=== PATIENT | female | born 1955 | race Caucasian/White ===

== ENCOUNTER 2016-12-30 06:19 | Emergency (ER) | payer BC ==
[2016-12-30] MEDS ORDERED: Sodium Chloride 0.9% 1,000 ML IV ONE (07:07)
[2016-12-30] MEDS ORDERED: Iopamidol 755 Mg/ML 75 ML Bottle IV ONE (08:18)
[2016-12-30 10:37] VITALS: BP 125/90
--- NOTE | 2016-12-31 01:37 | ER ---
DATE SEEN: 12/30/2016 TIME SEEN: The patient's arrival at 0630 hours. HISTORY OF PRESENT ILLNESS: This pleasant 61-year-old , nonsmoking woman, who drinks 4 beers a week presented with new onset of 0300 hours sharp, R>L midepigastric abdominal discomfort, 6/10 in intensity. Previous surgery cholecystectomy noted. No previous history of diabetes, heart disease (daughter has diabetes), no coronary artery disease, asthma, no nausea, vomiting, diarrhea, constipation, blood in her stool, hematochezia, melena, or reflux. On 10/18/2015, Dr. Pina performed EGD and demonstrated mild esophagitisa hiatus hernia with 6 cm of the stomach above the gastroesophageal junction - and also . Pathology specimens and biopsies were negative patient was diagnosed with GERD. She has had long history of GERD prior to this. The patient's last menstrual period was when she was 44. She is a 4, para 4-0-0-4. No intercurrent abdominal pain or bleed. SOCIAL HISTORY: The patient is and is a nonsmoker. Drinks pop. She took a suppository at 0300 hours. PAST MEDICAL HISTORY: Noncontributory other than previous surgery cholecystectomy and GERD with EGD. CURRENT MEDICATIONS: 1. Ranitidine 150 mg daily. 2. Omeprazole 40 mg at bedtime. 3. Citalopram 30 mg daily for depression. REVIEW OF SYSTEMS: Negative except as noted above. PHYSICAL EXAMINATION: VITAL SIGNS: Blood pressure 98/64, heart rate 67, respirations 16, and oxygen saturation 97%. HEENT: A tanned woman, who is somewhat stoic. PERRLA intact. Pharynx without abnormality. Mucosa is moist. No cervical adenopathy. No thyromegaly. LUNGS: Clear to auscultation without rales, rhonchi, or wheezes. HEART: S1, S2. No murmur. ABDOMEN: Soft. Mild- to-moderate generalized guarding. It is difficult to have her relax, even if she sat, she did not relax. No heel jar pain noted. RECTAL: Not performed. PELVIC: Not performed. EXTREMITIES: Lower extremities without edema. WORKING DIAGNOSES: 1. Abdominal pain, etiology indeterminate, nonspecific. 2. The patient is not an alcoholic even though she has 4 beers a week. 3. Status post previous cholecystectomy. 4. Status post esophagogastroduodenoscopy 10/18/2015 with documented hiatus hernia and gastroesophageal reflux disease. Treated with omeprazole and ranitidine. 5. Depression treated with citalopram. 6. Four drinks of beer per week. PLAN: The patient's status discussed with Dr. Mantilla. He will be assuming her care. CBC, CMP, lactate, and CAT scan with oral contrast. /[id number] LS/MODL MTDD
--- NOTE | 2016-12-31 02:53 | ER ---
DATE SEEN: 12/30/2016 ADDENDUM: CAT scan report, the patient has small hiatus hernia, has a small 4- mm nodule in the right lung base. The appendix is normal. No evidence for bowel obstruction or other abnormality on the CAT scan. The patient instructed to follow up with doctor in a week. She is informed that she has a small 4-mm nodule in the right lower lung base. She first told me that she is not a smoker , but then she volunteered that she has smoked occasionally when she is stressful. She is advised to stop smoking. Follow up with her doctor here. May need a CAT scan and repeat urine. Otherwise, it would be an earlier CAT scan if she was a smoker. It also felt that most likely her abdominal pain is related to some of the food she has eaten. Perhaps a staphylococcal bacterial toxin and/or E. coli bacteria toxin. She is to follow up with doctor in a week. Increase her diet as tolerated. No medications prescribed. Additional comment: At 1000 hours, she no longer had her abdominal pain. She felt better. This is very suggestive this is a food mediated abdominal discomfort process. Also, i suggested to her she could have experienced mass action, which would cause mild cramping or moderate cramping. /[id number] YECENIA/ANSHUL SAMS
--- NOTE | 2017-02-07 03:24 | ER ---
DATE SEEN: 12/30/2016 DIAGNOSES: 1. Abdominal pain, probably secondary to gastritis and food-mediated enterotoxin. 2. Status post previous esophagogastroduodenoscopy diagnosis of hiatus hernia with the hernia is 6 cm above the diaphragm. 3. Nodule at right lung base which will be followed on a 6-month basis. 4. Status post cholecystectomy, esophagogastroduodenoscopy. 5. Gastroesophageal reflux disease. 6. Depression. /[id number] YECENIA/MARIAL
== END 2016-12-30 10:06 | disposition home or self-care (01) ==
LOC: FB.ED 06:19
DX: R10.9 Unspecified abdominal pain (principal); K44.9 Diaphragmatic hernia without obstruction or gangrene; R91.1 Solitary pulmonary nodule; K21.9 Gastro-esophageal reflux disease without esophagitis; F32.9 Major depressive disorder, single episode, unspecified; Z79.899 Other long term (current) drug therapy; Z90.49 Acquired absence of other specified parts of digestive tract
CPT/HCPCS: 36415; 74177; 80053; 81001; 83605; 85025; 96360; 99284; J7040; Q9967

== ENCOUNTER 2020-05-31 03:11 | Emergency (ER) | payer BC ==
--- NOTE | 2020-05-31 04:49 | EDM.PDOC ---
ED HPI GENERAL MEDICAL PROBLEM - General Chief Complaint: Fever Stated Complaint: FEVER Time Seen by Provider: 05/31/20 03:44 Source of Information: Reports: Patient History Limitations: Reports: No Limitations - History of Present Illness INITIAL COMMENTS - FREE TEXT/NARRATIVE: Cheri comes into [facility] ED with a febrile illness over the past 12 hours. Sxs have included a headache, muscle aches, loss of appetite, and malaise. There has been no chills, sweats, cough, sore throat, rash, nausea or vomiting. She is unaware of any exposure. Of interest, she obtained Pneumovax, Hep A, and Fluzone vax on May 28. She has taken Tylenol of sxs. headache Pain Score (Numeric/FACES): 9 - Related Data Allergies Allergy/AdvReac Type Severity Reaction Status Date / Time No Known Allergies Allergy Verified 12/30/16 06:38 Home Meds: Home Meds Citalopram Hydrobromide [Celexa] 30 mg PO DAILY 02/08/14 [History] Omeprazole [Prilosec] 40 mg PO BEDTIME 02/08/14 [History] Ranitidine HCl [Zantac] 150 mg PO DAILY PRN 10/17/15 [History] Past Medical History HEENT History: Reports: None Cardiovascular History: Reports: None Respiratory History: Reports: None Gastrointestinal History: Reports: GERD Genitourinary History: Reports: None APPLICATION ARCHITECT History: Reports: None Musculoskeletal History: Reports: None Neurological History: Reports: None Psychiatric History: Reports: Depression Endocrine/Metabolic History: Reports: None Hematologic History: Reports: None Immunologic History: Reports: None Oncologic (Cancer) History: Reports: None Dermatologic History: Reports: None - Infectious Disease History Infectious Disease History: Reports: None - Past Surgical History Head Surgeries/Procedures: Reports: None GI Surgical History: Reports: Cholecystectomy, Colonoscopy Social & Family History - Family History Family Medical History: No Pertinent Family History - Tobacco Use Tobacco Use Status *Q: Former Tobacco User Used Tobacco, but Quit: Yes Month/Year Tobacco Last Used: unable to remember. Tobacco Use Comment: states that she only smokes when she was a teenager. - Caffeine Use Caffeine Use: Reports: None - Recreational Drug Use Recreational Drug Use: No ED ROS GENERAL - Review of Systems Review Of Systems: See Below Constitutional: Reports: Fever, Malaise, Weakness, Decreased Appetite HEENT: Reports: No Symptoms Respiratory: Reports: No Symptoms Cardiovascular: Reports: No Symptoms Endocrine: Reports: No Symptoms GI/Abdominal: Reports: Decreased Appetite : Reports: No Symptoms Musculoskeletal: Reports: Muscle Pain Skin: Reports: No Symptoms Neurological: Reports: No Symptoms, Change in Speech Hematologic/Lymphatic: Reports: No Symptoms Immunologic: Reports: No Symptoms ED EXAM, GENERAL - Physical Exam Exam: See Below Exam Limited By: No Limitations General Appearance: Alert, WD/WN, No Apparent Distress Eye Exam: Bilateral Eye: EOMI, Normal Inspection, PERRL Ears: Normal External Exam Nose: Normal Inspection Throat/Mouth: Normal Inspection, Normal Lips, Normal Oropharynx, Normal Voice, No Airway Compromise Head: Normocephalic Neck: Normal Inspection, Supple, Non-Tender Respiratory/Chest: Lungs Clear, Chest Non-Tender Cardiovascular: Regular Rate, Rhythm, No Edema, No JVD, No Murmur GI/Abdominal: Normal Bowel Sounds, Soft, Non-Tender, No Organomegaly, No Distention, No Mass (Female) Exam: Deferred Rectal (Female) Exam: Deferred Back Exam: Normal Inspection Extremities: Normal Inspection Neurological: Alert, Oriented, CN II-XII Intact, Normal Cognition, Normal Gait, No Motor/Sensory Deficits Psychiatric: Normal Affect, Normal Mood Skin Exam: Warm, Dry, Intact, Normal Color, No Rash Lymphatic: No Adenopathy Course - Vital Signs Text/Narrative:: Following assessment, I obtained a Covid 19 screen:NEG; CBC noted Hgb 13.8 gm, WBC 17,180, plts 314,000;Lactic a 0.5; the BMP and UA was baseline;a phone call to patient after discharge notes she had been sleeping, not recorded recent temp, and had taken some hydration. She will monitor temps, and call back to the ED in 4 hours if sxs persist. Patient acknowledges this COA. Last Recorded V/S: Last Vital Signs Temp 36.7 C 05/31/20 05:05 Pulse 87 05/31/20 05:05 Resp 17 05/31/20 05:05 BP 103/69 05/31/20 05:05 Pulse Ox 96 05/31/20 05:05 - Orders/Labs/Meds Orders: Active Orders 24 hr Category Date Time Status CBC WITH AUTO DIFF [HEME] Stat Lab 05/31/20 04:50 Received Labs: Laboratory Tests 05/31/20 05/31/20 05/31/20 Range/Units 03:40 04:50 04:50 Sodium 135 (135-145) mmol/L Potassium 3.5 (3.5-5.3) mmol/L Chloride 100 (100-110) mmol/L Carbon Dioxide 25 (21-32) mmol/L BUN 9 (7-18) mg/dL Creatinine 1.0 (0.55-1.02) mg/dL Est Cr Clr Drug Dosing 49.80 mL/min Estimated GFR (MDRD) 55 L (>60) BUN/Creatinine Ratio 9.0 (9-20) Glucose 99 (80-116) mg/dL Lactic Acid 0.5 (0.4-2.0) mmol/L Calcium 8.7 (8.6-10.2) mg/dL Urine Color (YELLOW) Urine Appearance (CLEAR) Urine pH (5.0-6.5) Ur Specific Mascot (1.010-1.025) Urine Protein (NEGATIVE) mg/dL Urine Glucose (UA) (NORMAL) mg/dL Urine Ketones (NEGATIVE) mg/dL Urine Occult Blood (NEGATIVE) Urine Nitrite (NEGATIVE) Urine Bilirubin (NEGATIVE) Urine Urobilinogen (NEGATIVE) mg/dL Ur Leukocyte Esterase (NEGATIVE) Urine RBC (0-5) Urine WBC (0-5) Ur Squamous Epith Cells (NS,R,O) Urine Bacteria (NS) SARS-CoV-2 RNA (RASHID) Negative (NEGATIVE) 05/31/20 Range/Units 05:07 Sodium (135-145) mmol/L Potassium (3.5-5.3) mmol/L Chloride (100-110) mmol/L Carbon Dioxide (21-32) mmol/L BUN (7-18) mg/dL Creatinine (0.55-1.02) mg/dL Est Cr Clr Drug Dosing mL/min Estimated GFR (MDRD) (>60) BUN/Creatinine Ratio (9-20) Glucose (80-116) mg/dL Lactic Acid (0.4-2.0) mmol/L Calcium (8.6-10.2) mg/dL Urine Color Yellow (YELLOW) Urine Appearance Clear (CLEAR) Urine pH 6.0 (5.0-6.5) Ur Specific Mascot 1.010 (1.010-1.025) Urine Protein Negative (NEGATIVE) mg/dL Urine Glucose (UA) Normal (NORMAL) mg/dL Urine Ketones Negative (NEGATIVE) mg/dL Urine Occult Blood Moderate H (NEGATIVE) Urine Nitrite Negative (NEGATIVE) Urine Bilirubin Negative (NEGATIVE) Urine Urobilinogen Normal (NEGATIVE) mg/dL Ur Leukocyte Esterase Negative (NEGATIVE) Urine RBC 0-5 (0-5) Urine WBC 0-5 (0-5) Ur Squamous Epith Cells Few H (NS,R,O) Urine Bacteria Rare H (NS) SARS-CoV-2 RNA (RASHID) (NEGATIVE) Departure - Departure Time of Disposition: 05:15 Disposition: Home, Self-Care 01 Condition: Fair Clinical Impression: Febrile illness - Discharge Information *PRESCRIPTION DRUG MONITORING PROGRAM REVIEWED*: Not Applicable *COPY OF PRESCRIPTION DRUG MONITORING REPORT IN PATIENT SHANTE: Not Applicable Instructions: Fever, Adult, Rehydration, Adult Referrals: Esmer Woodson PA [Primary Care Provider] - Forms: ED Department Discharge Additional Instructions: Dr. Kent will call you if there is any abnormal result with your lab draw. Drink plenty of water, have some Gatorade as well. Follow up with you primary care provider as needed. Call if you have any questions or may come back to the ER if symptoms get acutely worse. Sepsis Event Note (ED) - Evaluation Sepsis Screening Result: Possible Sepsis Risk - Focused Exam Vital Signs: Vital Signs Temp Pulse Resp BP Pulse Ox 05/31/20 05:05 36.7 C 87 17 103/69 96 05/31/20 03:20 37.5 C 112 H 17 108/76 95 - Problem List & Annotations (1) Febrile illness SNOMED Code(s): 689737044 Code(s): R50.9 - FEVER, UNSPECIFIED Status: Acute Annotation/Comment:: I advised patient to monitor temps, hydration, and to call back to the ED if sxs persist. - Problem List Review Problem List Initiated/Reviewed/Updated: Yes - My Orders Last 24 Hours: My Active Orders 05/31/20 04:50 CBC WITH AUTO DIFF [HEME] Stat - Assessment/Plan Last 24 Hours: My Active Orders 05/31/20 04:50 CBC WITH AUTO DIFF [HEME] Stat Plan: Follow up if sxs persist.
[2020-05-31 05:06] VITALS: BP 103/69; PULSE 87
== END 2020-05-31 05:12 | disposition home or self-care (01) ==
LOC: FB.ED 03:11
DX: R50.9 Fever, unspecified (principal); K21.9 Gastro-esophageal reflux disease without esophagitis; Z87.891 Personal history of nicotine dependence; Z20.828 Contact with and (suspected) exposure to other viral communicable diseases; Z79.899 Other long term (current) drug therapy
CPT/HCPCS: 36415; 80048; 81001; 83605; 99282; 99283; U0002

== ENCOUNTER → 2023-11-15 | Day surgery (SDC) | payer MEDICARE ==
[~2023-11-15] MED LIST: Glycopyrrolate 0.2 MG/ML 5 ML MDV IV ONE; Lidocaine 2% 100 MG/5 ML Syringe IVPUSH ONE; Phenylephrine 0.5% Nasal Spray 15 ML Bot NAS ONE; Propofol 200 MG/20 ML SDV IV ONE; Sodium Chloride 0.9% 10 ML Syringe FLUSH PRN
[2023-11-15] MEDS: Lactated Ringers 1,000 ML IV SCH (09:19)
[2023-11-15] MEDS: Simethicone Drops 40 MG/0.6 ML 30 ML Bottle PO ONE (10:41)
[2023-11-15 12:17] VITALS: BP 148/88; PULSE 77
== END ==
LOC: FB.SDS 08:00
PROVIDERS: ATTEND Surgery
DX: D12.0 Benign neoplasm of cecum (principal); D12.6 Benign neoplasm of colon, unspecified; R19.4 Change in bowel habit; K42.9 Umbilical hernia without obstruction or gangrene; F32.A Depression, unspecified; K21.9 Gastro-esophageal reflux disease without esophagitis; E78.5 Hyperlipidemia, unspecified; I10 Essential (primary) hypertension; R19.5 Other fecal abnormalities; Z86.010 Personal history of colon polyps; Z80.0 Family history of malignant neoplasm of digestive organs; Z79.899 Other long term (current) drug therapy; Z98.890 Other specified postprocedural states; Z87.891 Personal history of nicotine dependence
CPT/HCPCS: 00811; 88305; A9270-GY; J2704; J3490; J7120